=== PATIENT | female | born 1945 | race Caucasian/White ===

== ENCOUNTER 2017-04-18 05:06 | Inpatient (IN) | payer MEDICARE, OTHER ==
[2017-04-18] VITALS (8 sets, daily range): BP systolic 139–165; BP diastolic 66–89
[~2017-04-18] VITALS: Ht 165.1 cm; Wt 90.7 kg
[~2017-04-18 05:06] MED LIST: ASCO500C16 PO; CALC-20 PO; GABA400C PO; MAXIDE PO; MOME17SP NS; MULT1CAP60 PO; NYST30OI2 TP; PANT40TA2 PO; TEA60OIL TP
[2017-04-18] MEDS ORDERED: MELO-107 PO (05:35)
[2017-04-18] MEDS ORDERED: TIOT4MIS3 IH (05:35)
[2017-04-18] MEDS ORDERED: BUPR-51 PO (05:35)
[2017-04-18] MEDS ORDERED: TRIA1CAP2 PO (05:35)
[2017-04-18] MEDS ORDERED: TRAM50TA2 PO (05:35)
[2017-04-18] MEDS ORDERED: KETOROLAC TROMETHAMINE INJ 30 MG/ML VIAL ONE (06:36)
[2017-04-18] MEDS ORDERED: BUPIVACAINE 0.5 % PF 150 MG/30 ML VIAL ONE (06:37)
[2017-04-18] MEDS ORDERED: BACITRACIN 50000 UNITS/VIAL ONE (06:37)
[2017-04-18] MEDS ORDERED: ANESTHESIA TRAY IN PYXIS 1 EA TRAY MC ONE (06:37)
[2017-04-18] MEDS ORDERED: HYDROMORPHONE INJ 2 MG/ML DISP.SYRIN ONE (06:54)
[2017-04-18] MEDS ORDERED: CLINDAMYCIN 900 MG/6 ML VIAL ONE (06:55)
[2017-04-18] MEDS ORDERED: ROCURONIUM BROMIDE 50 MG/5 ML ONE (06:55)
--- NOTE | 2017-04-18 07:00 | NUR ---
RN OPENING NOTES ENDORSED PT. IS IN DAY SURGERY FOR A TOTAL RIGHT HIP ARTHROPLASTY. PT. IS NOT IN ROOM 319 BED 2. Addendum: 04/18/17 at 0938 by NICCI LAMB RN NOTE ERROR ABOVE. PT. HAS A LEFT TOTAL HIP ARTHROPLASTY.
[2017-04-18] MEDS ORDERED: TRANEXAMIC ACID 3,000 MG in SODIUM CHLORIDE IRRIG SOLUTION 70 ML IR ONE (07:30)
[2017-04-18 07:44] LABS: BASOPHILS % (AUTO) 0.3 % (0.0-2.0); EOSINOPHILS # (AUTO) 0.3 /CMM (0.0-0.7); EOSINOPHILS % (AUTO) 2.4 % (0.0-6.0); HEMATOCRIT 46 % (33-45); HEMOGLOBIN 15.9 g/dL (11.5-14.8); LYMPHOCYTES # (AUTO) 2.8 /CMM (0.8-4.8); LYMPHOCYTES % (AUTO) 25.8 % (20.0-44.0); MEAN CORPUSCULAR HEMOGLOBIN 32 PG (26.0-33.0); MEAN CORPUSCULAR HGB CONC 35 g/dl (31.0-36.0); MEAN CORPUSCULAR VOLUME 91 fL (82-100); MONOCYTES # (AUTO) 0.7 /CMM (0.1-1.30); MONOCYTES % (AUTO) 6.7 % (2.0-12.0); NEUTROPHILS # (AUTO) 7.1 /CMM (1.8-8.9); NEUTROPHILS % (AUTO) 64.8 % (43.0-81.0); PLATELET COUNT (AUTO) 194 /CMM (150-450); RDW COEFFICIENT OF VARIATION 13.4 (11.5-15.0); WHITE BLOOD COUNT (AUTO) 10.9 K/uL (4.3-11.0)
[2017-04-18 08:04] LABS: INR 0.98 (0.87-1.13)
[2017-04-18 08:15] LABS: POTASSIUM 3.8 mmol/L (3.5-5.1)
[2017-04-18] MEDS ORDERED: ALBUTEROL FS 2.5 MG/3 ML VIAL.NEB ONE (08:53)
[2017-04-18] MEDS ORDERED: HYDROMORPHONE 1 MG/1 ML DISP.SYRIN ONE (08:54)
[2017-04-18] MEDS ORDERED: FENTANYL PF 100MCG/2ML AMPUL ONE (09:00)
--- NOTE | 2017-04-18 09:35 | NUR ---
RN NOTES PT. RETURNED TO ROOM 119 BED 2 IN MEDICALLY STABLE CONDITION POST OP TOTAL LEFT HIP ARTHROPLASTY.
--- NOTE | 2017-04-18 09:47 | NUR ---
RN POST OP ORDERS GIVEN TO PHARMACY.
[2017-04-18] MEDS ORDERED: HYDROCODONE/APAP 5/325MG 1 EACH TABLET PO PRN ×2 (10:30→11:00)
[2017-04-18] MEDS ORDERED: ENOXAPARIN SODIUM 40 MG/0.4 ML DISP.SYRIN SQ SCH (10:30)
[2017-04-18] MEDS ORDERED: HYDROMORPHONE 1 MG/1 ML DISP.SYRIN IV PRN (10:30)
[2017-04-18] MEDS ORDERED: HYDROCODONE/APAP 10/325MG 1 EA TABLET PO PRN (10:30)
[2017-04-18] MEDS ORDERED: DULCOLAX 10 MG/SUPP.RECT RC PRN (11:00)
[2017-04-18] MEDS ORDERED: SENOKOT 8.6 MG TABLET PO PRN ×2 (11:00)
[2017-04-18] MEDS ORDERED: AMBIEN 5 MG TABLET PO PRN (11:00)
[2017-04-18] MEDS ORDERED: COLACE 250 MG CAPSULE PO PRN (11:00)
[2017-04-18] MEDS ORDERED: HYDROMORPHONE INJ 0.5 MG/0.5 ML SYRINGE IV PRN ×2 (11:00→17:00)
[2017-04-18] MEDS ORDERED: NYSTATIN/TRIAMCIN CREAM 15 GM TUBE TP PRN (11:30)
[2017-04-18 11:48] LABS: HEMOGLOBIN 15.3 g/dL (11.5-14.8)
[2017-04-18] MEDS: IV LR 1000 ML 1,000 ML IV PRN ×3 (12:22→23:20)
[2017-04-18] MEDS: GABAPENTIN 400 MG CAPSULE PO SCH ×2 (13:16→17:07)
[2017-04-18] MEDS: CLINDAMYCIN IV RTU IN D5W 50 ML IV SCH ×3 (13:32→23:20)
[2017-04-18] MEDS ORDERED: CLONIDINE HCL 0.1 MG TABLET PO PRN (16:30)
[2017-04-18] MEDS: DOCUSATE SODIUM 100 MG CAPSULE PO SCH (17:07)
[2017-04-18] MEDS: HYDROCODONE/APAP 10/325MG 1 EA TABLET PO PRN ×2 (17:08→21:42)
[2017-04-18] MEDS: RIVAROXABAN 10 MG TABLET PO SCH (17:11)
--- NOTE | 2017-04-18 18:20 | NUR ---
RN NOTES PT. STARTED USING INCENTIVE SPIROMETER, AND TOLERATING WELL.
--- NOTE | 2017-04-18 18:57 | NUR ---
RN CLOSING NOTES PT. IS IN BED A&OX4. BREATHING UNLABORED, AND EVENLY ON ROOM AIR. NO S/S OF ACUTE DISTRESS. PAIN LEVEL IS A 2/10. IV FLUIDS RUNNING AT 100 ML/HR. PT. REMOVED 1000 CC OF CLEAR, AND YELLOW URINE FROM ESCOBAR CATHETER. DVT PUMPS ARE ON BOTH LOWER EXTREMITIES, WITH AN ABDUCTOR PILLOW. 2 SIDE RAILS UP, AND INSTRUCTED PT. TO USE CALL LIGHT FOR ASSISTANCE. ALL NEEDS MET. WILL ENDORSE REPORT TO NURSE.
--- NOTE | 2017-04-18 20:00 | NUR ---
RECEIVED PATIENT IN BED, PATIENT IS AAO X4, ANXIOUS. VSS, AFEBRILE, NO DISTRESS NOTED. EDUCATION/INSTRUCTIONS GIVEN, QUESTIONS ANSWERED SAFETY MEASURES IMPLEMENTED, CALL LIGHT WITHIN REACH INSTRUCTED TO CALL FOR ASSISTANCE. CONTINUE TO MONITOR
[2017-04-19] VITALS (7 sets, daily range): BP systolic 117–141; BP diastolic 65–81
[2017-04-19] MEDS: HYDROCODONE/APAP 10/325MG 1 EA TABLET PO PRN ×3 (05:56→20:23)
[2017-04-19] MEDS: ALBUTEROL FS 2.5 MG/3 ML VIAL.NEB NEB PRN ×2 (06:10→22:31)
[2017-04-19 06:26] LABS: HEMATOCRIT 40 % (33-45); HEMOGLOBIN 13.9 g/dL (11.5-14.8); MEAN CORPUSCULAR HEMOGLOBIN 32 PG (26.0-33.0); MEAN CORPUSCULAR HGB CONC 34 g/dl (31.0-36.0); MEAN CORPUSCULAR VOLUME 92 fL (82-100); PLATELET COUNT (AUTO) 190 /CMM (150-450); RED BLOOD CELL COUNT(AUTO) 4.37 MIL/uL (4.0-5.2); WHITE BLOOD COUNT (AUTO) 12.2 K/uL (4.3-11.0)
[2017-04-19 07:05] LABS: CALCIUM, SERUM 8.9 mg/dL (8.5-10.1); CREATININE 0.9 mg/dL (0.6-1.3); MAGNESIUM 1.9 mg/dL (1.8-2.4); POTASSIUM 3.8 mmol/L (3.5-5.1)
[2017-04-19] MEDS: FLUTICASONE PROPIONATE 16 GM BOTTLE NS SCH (09:00)
[2017-04-19] MEDS: TRIAMTERENE/HYDROCHLOROTHIAZID (37.5/25MG) 1 UDCAP PO SCH (09:34)
[2017-04-19] MEDS: PANTOPRAZOLE 40 MG TABLET.DR PO SCH (09:35)
[2017-04-19] MEDS: BUPROPION XL 150 MG TAB.ER.24 PO SCH (09:36)
[2017-04-19] MEDS: DOCUSATE SODIUM 100 MG CAPSULE PO SCH ×2 (09:36→18:21)
[2017-04-19] MEDS: GABAPENTIN 400 MG CAPSULE PO SCH ×3 (09:36→18:21)
[2017-04-19] MEDS: FLUTICASONE/VILANTEROL 1 EACH BLST.W.DEV IH SCH (09:37)
[2017-04-19] MEDS ORDERED: ALBUTEROL FS 2.5 MG/0.5 ML VIAL.NEB NEB ONE (16:19)
[2017-04-19] MEDS ORDERED: MORPHINE SULFATE INJ 4 MG/ML DISP.SYRIN IM PRN (16:30)
[2017-04-19] MEDS: RIVAROXABAN 10 MG TABLET PO SCH (18:25)
[2017-04-19] MEDS: ALBUTEROL FS 2.5 MG/0.5 ML VIAL.NEB NEB SCH (19:30)
--- NOTE | 2017-04-19 19:30 | NUR ---
RN NOTES RECEIVED PATIENT FROM LAURA. PATIENT AO X 3, ABLE TO MAKE NEEDS KNOWN. NO ACUTE DISTRESS NOTED. DENIES ANY PAIN AT THIS TIME. IV SITE PATENT, INTACT; FLUSHED. SAFETY REMINDERS GIVEN. ON LOW BED WITH BILATERAL UPPER SIDE RAILS UP. CALL VU WITHIN EASY REACH. WILL CONTINUE TO MONITOR. Addendum: 04/20/17 at 3224 by DEREJE CALVILLO RN WRONG TIME. CORRECT TIME IS 6862
--- NOTE | 2017-04-19 19:45 | NUR ---
MS RN INITIAL NOTE PT RECEIVED IN BED AWAKE. A/O X4 AND ABLE TO MAKE NEEDS KNOWN. ON ROOM AIR AND SATURATING WELL. BREATHING REGULAR, EVEN AND UNLABORED. C/O L HIP PAIN. IV IN PLACE, CLEAN, PATENT AND FLUSHING WELL. CALL LIGHT WITHIN REACH. WILL CONTINUE TO MONITOR.
--- NOTE | 2017-04-19 20:49 | NUR ---
RT NOTE UNAWARE OF SCHEDULED TX. WILL CONTINUE WITH FOLLOWING SCHEDULED TIME.
--- NOTE | 2017-04-19 22:45 | NUR ---
RN NOTES RECEIVED PATIENT FROM LAURA. PATIENT AO X 3, ABLE TO MAKE NEEDS KNOWN. NO ACUTE DISTRESS NOTED. DENIES ANY PAIN AT THIS TIME. IV SITE PATENT, INTACT; FLUSHED. SAFETY REMINDERS GIVEN. ON LOW BED WITH BILATERAL UPPER SIDE RAILS UP. CALL VU WITHIN EASY REACH. WILL CONTINUE TO MONITOR.
--- NOTE | 2017-04-19 23:31 | NUR ---
MS RN NOTE PT TRANSFERRED TO ROOM 311-2 AND GAVE REPORT TO RN FOR CONTINUITY OF CARE.
[2017-04-20] MEDS: ALBUTEROL FS 2.5 MG/0.5 ML VIAL.NEB NEB SCH ×4 (01:56→19:48)
[2017-04-20] MEDS: HYDROCODONE/APAP 10/325MG 1 EA TABLET PO PRN ×3 (04:16→13:32)
--- NOTE | 2017-04-20 06:09 | NUR ---
RN NOTES PATIENT ASLEEP, EASILY AROUSABLE. RESPIRATIONS EVEN. NO SIGNS OF PAIN NOTED. NEEDS ATTENDED. SAFETY PRECAUTIONS AND COMFORT MEASURES IN PLACE. WILL GIVE REPORT TO DAY SHIFT FOR CONTINUITY OF CARE.
--- NOTE | 2017-04-20 07:15 | NUR ---
MS/RN OPENING NOTE PATIENT IN BED AWAKE. ALERT AND ORIENTED X4. DENIES SOB, PAIN AT THIS TIME. RESPIRATION REGULAR AND UNLABORED. NO BLADDER DISTENSION NOTED. PATIENT NOTED VOIDED. PERICARE RENDERED. KEPT CLEAN AND COMFORTABLE. LEFT HIP DRESSING INTACT WITH NO DRAINAGE. RIGHT FOREARM G 24 PATENT. BED LOW AND LOCKED. SIDE RAILS UP X2. CALL LIGHT WITHIN REACH. WILL CONTINUE TO MONITOR.
[2017-04-20 07:48] LABS: BASOPHILS % (AUTO) 0.4 % (0.0-2.0); EOSINOPHILS # (AUTO) 0.6 /CMM (0.0-0.7); EOSINOPHILS % (AUTO) 4.8 % (0.0-6.0); HEMATOCRIT 38 % (33-45); HEMOGLOBIN 13.1 g/dL (11.5-14.8); LYMPHOCYTES # (AUTO) 2.3 /CMM (0.8-4.8); LYMPHOCYTES % (AUTO) 18.4 % (20.0-44.0); MEAN CORPUSCULAR HEMOGLOBIN 32 PG (26.0-33.0); MEAN CORPUSCULAR HGB CONC 35 g/dl (31.0-36.0); MEAN CORPUSCULAR VOLUME 92 fL (82-100); MONOCYTES # (AUTO) 1.1 /CMM (0.1-1.30); MONOCYTES % (AUTO) 9.1 % (2.0-12.0); NEUTROPHILS # (AUTO) 8.3 /CMM (1.8-8.9); NEUTROPHILS % (AUTO) 67.3 % (43.0-81.0); PLATELET COUNT (AUTO) 168 /CMM (150-450); RDW COEFFICIENT OF VARIATION 13.6 (11.5-15.0); RED BLOOD CELL COUNT(AUTO) 4.09 MIL/uL (4.0-5.2); WHITE BLOOD COUNT (AUTO) 12.3 K/uL (4.3-11.0)
[2017-04-20 08:00] VITALS: BP 125/63
[2017-04-20] MEDS: PANTOPRAZOLE 40 MG TABLET.DR PO SCH (08:07)
[2017-04-20 08:08] LABS: CALCIUM, SERUM 8.7 mg/dL (8.5-10.1); CREATININE 1.1 mg/dL (0.6-1.3); MAGNESIUM 1.8 mg/dL (1.8-2.4); PHOSPHORUS 3.3 mg/dL (2.5-4.9); POTASSIUM 3.8 mmol/L (3.5-5.1)
[2017-04-20] MEDS: DOCUSATE SODIUM 100 MG CAPSULE PO SCH ×2 (08:48→17:21)
[2017-04-20] MEDS: BUPROPION XL 150 MG TAB.ER.24 PO SCH (08:48)
[2017-04-20] MEDS: GABAPENTIN 400 MG CAPSULE PO SCH ×3 (08:48→17:21)
[2017-04-20] MEDS: TRIAMTERENE/HYDROCHLOROTHIAZID (37.5/25MG) 1 UDCAP PO SCH (08:48)
[2017-04-20] MEDS: FLUTICASONE/VILANTEROL 1 EACH BLST.W.DEV IH SCH (08:48)
[2017-04-20] MEDS: FLUTICASONE PROPIONATE 16 GM BOTTLE NS SCH (09:00)
[2017-04-20 16:00] VITALS: BP 136/65
[2017-04-20] MEDS: TYLENOL 650 MG TABLET PO PRN (17:21)
[2017-04-20] MEDS: RIVAROXABAN 10 MG TABLET PO SCH (17:22)
--- NOTE | 2017-04-20 18:16 | NUR ---
MS/RN CLOSING NOTE PATIENT ALERT AND ORIENTED X4. DENIES SOB AT THIS TIME. RESPIRATION REGULAR AND UNLABORED. DENIES PAIN AT THIS TIME. IN NO APPARENT DISTRESS. PATIENT CONTINENT. VOIDED CLEAR, YELLOW COLOR URINE. RFA G 24 PATENT. PATIENT REFUSED IV FLUIDS DURING THE SHIFT DESPITE EXPLAINING RISKS AND BENEFITS. PATIENT NOTED DRINKING WATER. BED LOW AND LOCKED. SIDE RAILS UP X3. CALL LIGHT WITHIN REACH. WILL ENDORSE TO WAREHOUSE ASSEMBLY WORKER.
--- NOTE | 2017-04-20 19:30 | NUR ---
MS RN OPENING NOTE PATIENT RECEIVED IN BED WITH EYES CLOSED, ALERT AND ORIENTED X 4 . DENIES SOB, NO C/O PAIN OR ACUTE DISTRESS AT THIS TIME. RESPIRATION REGULAR AND UNLABORED. IV ACCESS TO RFA,INTACT PATENT. WILL KEEP CLEAN AND COMFORTABLE. LEFT HIP DRESSING INTACT WITH NO DRAINAGE. BED IN LOW LOCKED POSITION. SIDE RAILS UP X 2. CALL LIGHT WITHIN REACH. WILL CONTINUE TO MONITOR CLOSELY.
[2017-04-20 20:00] VITALS: BP 113/65
[2017-04-21] MEDS: ALBUTEROL FS 2.5 MG/0.5 ML VIAL.NEB NEB SCH ×4 (01:30→20:24)
[2017-04-21] MEDS: HYDROCODONE/APAP 10/325MG 1 EA TABLET PO PRN ×5 (01:38→19:55)
--- NOTE | 2017-04-21 01:38 | NUR ---
PRN NORCO GIVEN PATIENT HAD C/O PAIN TO LEFT HIP, SCALED PAIN LEVEL 7/10, REFUSED TO TAKE MORPHINE, WANTED TO TAKE ONLY NORCO, STATED ONCE SHE STOPS MOVING IN BED, PAIN WOULD SUBSIDE & NORCO WILL BE EFFECTIVE FOR HER. NORCO GIVEN ORDERED. WILL MONITOR FOR EFFECTIVENESS.
--- NOTE | 2017-04-21 02:30 | NUR ---
REASSESSED FOR PAIN PATIENT NOTED TO BE SLEEPING BUT AROUSABLE @ THIS TIME. PAIN HAS SUBSIDED, NOW 3/10 WHEN PT MOVES IN BED, PER PATIENT.
--- NOTE | 2017-04-21 05:23 | NUR ---
PRN NORCO GIVEN PATIENT HAD C/O PAIN TO LEFT HIP, SCALED PAIN LEVEL 6/10, REFUSED TO TAKE MORPHINE 2 THIS TIME, PREFERRED TO TAKE NORCO ONLY. NORCO GIVEN ORDERED. WILL MONITOR FOR EFFECTIVENESS.
--- NOTE | 2017-04-21 06:29 | NUR ---
MS RN CLOSING NOTES PATIENT SLEEPING IN BED, AROUSABLE, ALERT AND ORIENTED X 4 . DENIES SOB, NO C/O PAIN OR ACUTE DISTRESS AT THIS TIME. RESPIRATION REGULAR AND UNLABORED. HAD PAIN MED X 2 2 NIGHT DUE TO L HIP PAIN. IV ACCESS TO RFA, SL, INTACT PATENT, REFUSES IVF, STATED ABLE TO TAKE GOOD PO INTAKE & DOESN'T NEED IVF. KEPT CLEAN AND COMFORTABLE. LEFT HIP DRESSING INTACT WITH NO DRAINAGE. BED IN LOW LOCKED POSITION. SIDE RAILS UP X 2. CALL LIGHT WITHIN REACH. WILL ENDORSE TO AM RN FOR CONTINUITY OF CARE.
[2017-04-21 06:53] LABS: BASOPHILS # (AUTO) 0.1 /CMM (0.0-0.2); BASOPHILS % (AUTO) 0.5 % (0.0-2.0); EOSINOPHILS # (AUTO) 0.8 /CMM (0.0-0.7); EOSINOPHILS % (AUTO) 5.8 % (0.0-6.0); HEMATOCRIT 39 % (33-45); HEMOGLOBIN 13.3 g/dL (11.5-14.8); LYMPHOCYTES # (AUTO) 2.6 /CMM (0.8-4.8); LYMPHOCYTES % (AUTO) 18.2 % (20.0-44.0); MEAN CORPUSCULAR HEMOGLOBIN 32 PG (26.0-33.0); MEAN CORPUSCULAR HGB CONC 34 g/dl (31.0-36.0); MEAN CORPUSCULAR VOLUME 93 fL (82-100); MONOCYTES # (AUTO) 1.3 /CMM (0.1-1.30); MONOCYTES % (AUTO) 8.8 % (2.0-12.0); NEUTROPHILS # (AUTO) 9.5 /CMM (1.8-8.9); NEUTROPHILS % (AUTO) 66.7 % (43.0-81.0); PLATELET COUNT (AUTO) 177 /CMM (150-450); RDW COEFFICIENT OF VARIATION 13.9 (11.5-15.0); RED BLOOD CELL COUNT(AUTO) 4.21 MIL/uL (4.0-5.2); WHITE BLOOD COUNT (AUTO) 14.2 K/uL (4.3-11.0)
[2017-04-21 07:15] LABS: CALCIUM, SERUM 8.9 mg/dL (8.5-10.1); CREATININE 0.9 mg/dL (0.6-1.3); MAGNESIUM 2.1 mg/dL (1.8-2.4); PHOSPHORUS 4.3 mg/dL (2.5-4.9); POTASSIUM 3.9 mmol/L (3.5-5.1)
--- NOTE | 2017-04-21 07:38 | NUR ---
RN OPENING NOTES RECEIVED PT. PT IS STABLE AND RESTING IN BED. A/OX4, NO S/S OF RESP DISTRESS. PT HAS C/O 5/10 PAIN IN LLE, HOWEVER IS ABLE TO TOLERATE WITHOUT PAIN MEDICATION. IV ACCESS LOCATED ON RIGHT FA 24G, CURRENTLY SL DUE TO IV FLUID REFUSAL. PT HAD EPISODES OF ORTHOSTATIC HYPOTENSION IN PM, WILL NOTIFY MD. SAFETY MEASURES IN PLACE, CALL LIGHT WITHIN REACH. WILL CONTINUE TO MONITOR.
[2017-04-21 08:00] VITALS: BP 130/60
[2017-04-21] MEDS: BUPROPION XL 150 MG TAB.ER.24 PO SCH (08:18)
[2017-04-21] MEDS: PANTOPRAZOLE 40 MG TABLET.DR PO SCH (08:18)
[2017-04-21] MEDS: GABAPENTIN 400 MG CAPSULE PO SCH ×3 (08:18→16:37)
[2017-04-21] MEDS: DOCUSATE SODIUM 100 MG CAPSULE PO SCH ×2 (08:18→16:37)
[2017-04-21] MEDS: FLUTICASONE PROPIONATE 16 GM BOTTLE NS SCH (08:40)
[2017-04-21] MEDS: FLUTICASONE/VILANTEROL 1 EACH BLST.W.DEV IH SCH (08:40)
[2017-04-21] MEDS: TRIAMTERENE/HYDROCHLOROTHIAZID (37.5/25MG) 1 UDCAP PO SCH (09:00)
[2017-04-21] MEDS: RIVAROXABAN 10 MG TABLET PO SCH (16:41)
--- NOTE | 2017-04-21 18:31 | NUR ---
RN CLOSING NOTE PT IN BED RESTING. NO S/S OF RESP DISTRESS OR SOB. NO C/O PAIN AT THIS TIME. LEFT HIP SX DRESSING CHANGED PER PT REQUEST. ALL PT NEEDS ANTICIPATED AND MET, SAFETY MEASURES IN PLACE, CALL LIGHT WITHIN REACH. WILL ENDORSE TO HAIRSPRING I INSPECTOR FOR CAROLYN.
--- NOTE | 2017-04-21 19:10 | NUR ---
MS RN OPENING NOTE PATIENT RECEIVED IN BED, AWAKE, ALERT AND ORIENTED X 4 . DENIES SOB, HAS C/O PAIN TO LEFT HIP 04/28 BUT WOULD LIKE TO WAIT TO TAKE PAIN MED, WILL CHECK ON A PT IN A WHILE. NO ACUTE DISTRESS NOTED AT THIS TIME. RESPIRATION REGULAR AND UNLABORED. IV ACCESS TO RFA, INTACT & PATENT. WILL KEEP CLEAN AND COMFORTABLE. LEFT HIP DRESSING INTACT WITH NO DRAINAGE. BED IN LOW LOCKED POSITION. SIDE RAILS UP X 2. CALL LIGHT WITHIN REACH. WILL CONTINUE TO MONITOR CLOSELY.
--- NOTE | 2017-04-21 19:58 | NUR ---
PRN NORCO GIVEN PATIENT HAD C/O PAIN TO LEFT HIP, SCALED PAIN LEVEL 5/10, REFUSED TO TAKE MORPHINE @ THIS TIME, PREFERRED TO TAKE NORCO ONLY. NORCO GIVEN ORDERED. WILL MONITOR FOR EFFECTIVENESS.
[2017-04-21 20:00] VITALS: BP 141/73
[2017-04-22] MEDS: ALBUTEROL FS 2.5 MG/0.5 ML VIAL.NEB NEB SCH ×4 (00:59→20:36)
[2017-04-22] MEDS: HYDROCODONE/APAP 10/325MG 1 EA TABLET PO PRN ×4 (01:02→20:59)
--- NOTE | 2017-04-22 01:02 | NUR ---
PRN NORCO GIVEN PATIENT HAD C/O PAIN TO LEFT HIP, SCALED PAIN LEVEL 6/10, PREFERRERS TO TAKE NORCO ONLY. NORCO GIVEN ORDERED. WILL MONITOR FOR EFFECTIVENESS
[2017-04-22] MEDS: TYLENOL 650 MG TABLET PO PRN ×2 (03:05→16:16)
--- NOTE | 2017-04-22 03:05 | NUR ---
PRN TYLENOL GIVEN PATIENT HAD C/O HEADACHE & ASKED TO TAKE TYLENOL. PRN TYLENOL GIVEN ORDERED. WILL MONITOR FOR EFFECTIVENESS.
[2017-04-22] MEDS ORDERED: Z GUARD REMEDY 2 OZ OINT TP PRN (05:30)
--- NOTE | 2017-04-22 06:07 | NUR ---
PRN MORPHINE GIVEN PATIENT C/O LEFT HIP PAIN 08/28, ASKED TO GET MORPHINE IM, PRN MORPHINE GIVEN ORDERED. WILL MONITOR FOR REASSESS.
--- NOTE | 2017-04-22 06:57 | NUR ---
MS RN CLOSING NOTES PATIENT RESTING IN BED, AWAKE, ALERT AND ORIENTED X 4 . DENIES SOB, HAD C/O PAIN TO LEFT HIP, PRN MORPHINE GIVEN, SLOWLY EFFECTIVE. RESPIRATION REGULAR AND UNLABORED. IV ACCESS TO RFA, SL, INTACT PATENT. KEPT CLEAN AND COMFORTABLE. LEFT HIP DRESSING INTACT WITH NO DRAINAGE. BED IN LOW LOCKED POSITION. SIDE RAILS UP X 2. CALL LIGHT WITHIN REACH. WILL ENDORSE TO AM RN FOR CONTINUITY OF CARE.
[2017-04-22 07:00] LABS: BASOPHILS % (AUTO) 0.2 % (0.0-2.0); EOSINOPHILS # (AUTO) 0.8 /CMM (0.0-0.7); HEMATOCRIT 37 % (33-45); HEMOGLOBIN 12.7 g/dL (11.5-14.8); LYMPHOCYTES % (AUTO) 17.8 % (20.0-44.0); MEAN CORPUSCULAR HEMOGLOBIN 32 PG (26.0-33.0); MEAN CORPUSCULAR HGB CONC 35 g/dl (31.0-36.0); MEAN CORPUSCULAR VOLUME 92 fL (82-100); MONOCYTES # (AUTO) 1.1 /CMM (0.1-1.30); MONOCYTES % (AUTO) 9.3 % (2.0-12.0); NEUTROPHILS # (AUTO) 7.4 /CMM (1.8-8.9); NEUTROPHILS % (AUTO) 65.7 % (43.0-81.0); PLATELET COUNT (AUTO) 203 /CMM (150-450); RDW COEFFICIENT OF VARIATION 13.5 (11.5-15.0); RED BLOOD CELL COUNT(AUTO) 3.97 MIL/uL (4.0-5.2); WHITE BLOOD COUNT (AUTO) 11.3 K/uL (4.3-11.0)
--- NOTE | 2017-04-22 07:10 | NUR ---
RN NOTES PT IS LAYING DOWN IN BED, COMPLAINING OF PAIN ON HER L HIP. PT ON RA, RESPIRATIONS ARE EVEN AND UNLABORED. IV ON RFA INTACT AND SL. SAFETY MEASURES ARE IN PLACE, CALL LIGHT IS IN REACH. WILL CONTINUE TO MONITOR.
--- NOTE | 2017-04-22 07:20 | NUR ---
RN NOTES PT IS SCREAMING IN PAIN, COMPLAINING OF MUSCLE SPASMS. MORPHINE WAS GIVEN AND HEAT PACKS GIVEN, NEITHER WERE EFFECTIVE. FIDELINA ALTMAN NP NOTIFIED.
[2017-04-22] MEDS: PANTOPRAZOLE 40 MG TABLET.DR PO SCH (07:30)
--- NOTE | 2017-04-22 08:07 | NUR ---
PT REFUSED TX. PT ON ROOM AIR. NO SOB/ RESP DISTRESS NOTED. ZENY NOEL NOTIFIED.
--- NOTE | 2017-04-22 08:30 | NUR ---
RN NOTES PT REFUSED MORNING VITAL SIGNS DUE TO PAIN LEVEL. UNABLE TO GIVE BP MEDICATIONS IN THE MORNING.
[2017-04-22] MEDS: CYCLOBENZAPRINE 10 MG TABLET PO PRN ×2 (08:40→16:16)
[2017-04-22] MEDS: ZOFRAN 4mg/2ML IV PRN (08:40)
[2017-04-22] MEDS: DOCUSATE SODIUM 100 MG CAPSULE PO SCH ×2 (09:00→16:16)
[2017-04-22] MEDS: TRIAMTERENE/HYDROCHLOROTHIAZID (37.5/25MG) 1 UDCAP PO SCH (09:00)
[2017-04-22] MEDS: FLUTICASONE/VILANTEROL 1 EACH BLST.W.DEV IH SCH (09:00)
[2017-04-22] MEDS: FLUTICASONE PROPIONATE 16 GM BOTTLE NS SCH (09:00)
[2017-04-22] MEDS ORDERED: HYDROCODONE/APAP 5/325MG 1 EACH TABLET PO ONE (09:30)
[2017-04-22] MEDS ORDERED: MELOXICAM 7.5 MG TABLET PO SCH (09:30)
[2017-04-22] MEDS: GABAPENTIN 400 MG CAPSULE PO SCH ×3 (09:52→16:16)
[2017-04-22] MEDS: BUPROPION XL 150 MG TAB.ER.24 PO SCH (09:52)
[2017-04-22 16:00] VITALS: BP 127/65
[2017-04-22] MEDS: RIVAROXABAN 10 MG TABLET PO SCH (16:20)
--- NOTE | 2017-04-22 18:30 | NUR ---
RN NOTES PT IS LAYING DOWN IN BED, RESTING COMFORTABLY. PT ON RA, RESPIRATIONS ARE EVEN AND UNLABORED. IV ON RFA INTACT AND SL. ALL MEDS WERE GIVEN ORDERED AND PT NEEDS MET. DRESSING ON L HIP CHANGED. NO SIGNS OF DISTRESS NOTED. SAFETY MEASURES ARE IN PLACE, CALL LIGHT IS IN REACH. WILL ENDORSE TO STRUCTURAL IRON ERECTOR RN FOR CONTINUITY OF CARE.
[2017-04-22 20:00] VITALS: BP 130/69
--- NOTE | 2017-04-22 20:20 | NUR ---
Start of Shift: A/Ox4 lying in bed on R/A Disp briefs clean and dry left hop dressing C/D/I S/l to RFA intact and patent. C/o of sore throat and left hip pain given one tab of norco and salt water to gargle. Siderails up,call light within reach and bed in lowest postion.
[2017-04-23] MEDS: ALBUTEROL FS 2.5 MG/0.5 ML VIAL.NEB NEB SCH ×3 (01:10→13:30)
[2017-04-23] MEDS: CYCLOBENZAPRINE 10 MG TABLET PO PRN ×2 (01:51→09:55)
[2017-04-23] MEDS: HYDROCODONE/APAP 10/325MG 1 EA TABLET PO PRN ×5 (01:52→16:21)
[2017-04-23] MEDS: PANTOPRAZOLE 40 MG TABLET.DR PO SCH (05:49)
--- NOTE | 2017-04-23 06:28 | NUR ---
End of Shift: Lying in bed left hip dressing C/D/I S/L to right Forearm remains intact. Siderails up Call light within reach presently denies of any distress. Bed in lowest position.
--- NOTE | 2017-04-23 07:55 | NUR ---
MS RN OPENING NOTE PATIENT IS ALERT AND ORIENTED x4. NO PAIN AT THIS TIME. NO SOB OR DISTRESS NOTED. CALL LIGHT WITHIN REACH. SAFETY MEASURES IMPLEMENTED. ABLE TO COMMUNICATE NEEDS. IV INTACT AND PATENT, NO FLUIDS RUNNING AT THIS TIME. ON ROOM AIR TOLERATING WELL AT 94%. WEIGHT BEARING TOLERATED. HAD LEFT HIP REPLACEMENT ON 04/18/17. WILL CONTINUE TO MONITOR THROUGHOUT SHIFT
[2017-04-23] MEDS: TRIAMTERENE/HYDROCHLOROTHIAZID (37.5/25MG) 1 UDCAP PO SCH (09:00)
[2017-04-23] MEDS: FLUTICASONE PROPIONATE 16 GM BOTTLE NS SCH (09:00)
[2017-04-23] MEDS: GABAPENTIN 400 MG CAPSULE PO SCH ×3 (09:04→16:21)
[2017-04-23] MEDS: BUPROPION XL 150 MG TAB.ER.24 PO SCH (09:04)
[2017-04-23] MEDS: DOCUSATE SODIUM 100 MG CAPSULE PO SCH ×2 (09:04→16:21)
[2017-04-23] MEDS: FLUTICASONE/VILANTEROL 1 EACH BLST.W.DEV IH SCH (09:04)
[2017-04-23 09:13] VITALS: BP 113/63
[2017-04-23] MEDS: ZOFRAN 4mg/2ML IV PRN (13:44)
[2017-04-23] MEDS: TYLENOL 650 MG TABLET PO PRN (14:51)
[2017-04-23 16:00] VITALS: BP_SYST 113; BP_SYST 143; BP_DIAS 62; BP_DIAS 63
[2017-04-23] MEDS: RIVAROXABAN 10 MG TABLET PO SCH (16:24)
--- NOTE | 2017-04-23 17:26 | NUR ---
MS RADIO PERSONALITY NOTE PATIENT IS ALERT AND ORIENTED x4. NO PAIN AT THIS TIME. NO SOB OR DISTRESS NOTED. CALL LIGHT WITHIN REACH AT ALL TIMES. SAFETY MEASURES IMPLEMENTED. ABLE TO COMMUNICATE NEEDS. IV REMOVED, SKIN INTACT. ALL BELONGINGS ACCOUNTED FOR AND WITH PATIENT UPON DISCHARGE. ALL DISCHARGE INSTRUCTIONS GIVEN TO PATIENT AT BEDSIDE, PATIENT ABLE TO VERBALIZE UNDERSTANDING OF INSTRUCTIONS. ALSO GAVE DISCHARGE INSTRUCTIONS TO DILLAN AT [facility]. LEFT VIA AMBULANCE. DAUGHTER BARRERA WAS NOTIFIED OF DISCHARGE.
== END 2017-04-23 17:15 | DRG 470 ==
LOC: DS 05:06 → MEDSG1 05:08 → OBSVTOIN 05:08 → MEDSG1 05:22 → MED 04-19 22:44
PROVIDERS: ADMIT Specialist; ATTEND Specialist
PROC: 0SRB0JZ Replacement of Left Hip Joint with Synthetic Substitute, Open Approach (ICD-10-PCS; principal; 2017-04-18 07:00)
DX: M16.12 Unilateral primary osteoarthritis, left hip (principal); J44.9 Chronic obstructive pulmonary disease, unspecified; E87.1 Hypo-osmolality and hyponatremia; F32.9 Major depressive disorder, single episode, unspecified; G89.4 Chronic pain syndrome; K21.9 Gastro-esophageal reflux disease without esophagitis; E66.9 Obesity, unspecified; D72.829 Elevated white blood cell count, unspecified; E78.5 Hyperlipidemia, unspecified; F17.210 Nicotine dependence, cigarettes, uncomplicated; G62.9 Polyneuropathy, unspecified; I10 Essential (primary) hypertension; Z68.33 Body mass index [BMI] 33.0-33.9, adult; M62.838 Other muscle spasm
CPT/HCPCS: 36415; 80048-TC; 83735-TC; 84100-TC; 85025-TC; 85027-TC; 85610-TC; 85730-TC; 86850-TC; 86921-TC; 87081-TC; 88305-TC; 88311-TC; 97110-TC; 97116-TC; 97530-TC; A4217; A6253; A6402; J1170; J1885; J2270; J2405; J3010; J3490; J7120